=== PATIENT | male | born 2000 | race Caucasian/White ===

== ENCOUNTER 2022-05-06 04:36 | Emergency (ER) | payer OTHER, SELFPAY ==
--- NOTE | ~2022-05-06 | XR_ITS ---
EXAMINATION: XR chest 2V DATE: 05/06/2022 05:13 INDICATION: Cough. TECHNIQUE: Frontal and lateral views of the chest were obtained. COMPARISON: None. FINDINGS: The chest demonstrates clear lungs without pneumonia, pleural effusion, or pneumothorax. Th e heart size is normal. IMPRESSION: 1. No acute cardiopulmonary disease. Reviewed, dictated and finalized at location A. [employer]
[2022-05-06 04:40] VITALS: BP 129/74; PULSE 88; RESP 20; TEMP 37.1; O2SAT 95
[2022-05-06 04:45] VITALS: O2SAT 96
--- NOTE | 2022-05-06 05:01 | ED.URI ---
HPI - URI/Sore Throat General Chief Complaint: Upper Respiratory Infection Stated Complaint: SOB, cough Time Seen by Provider: 05/06/22 04:47 History of Present Illness HPI Narrative: This is a 22-year-old male who denies past medical history, presenting to the emergency department complaining of cough, myalgias, nausea and vomiting for the 2 days. He states the cough is productive of mucus, with intermittent specks of blood. He states his chest pain is sore, aggravated by prolonged coughing, alleviated with rest. He has no other complaints at this time Related Data Allergies Allergy/AdvReac Type Severity Reaction Status Date / Time aripiprazole Allergy Mild Anaphylactic Verified 05/06/22 04:46 Shock methylphenidate Allergy Anaphylaxis Verified 05/06/22 04:46 [From Concerta] CEPHALEXIN MONOHYDRATE Allergy Severe SOB, NECK Uncoded 05/06/22 04:46 WAS STIFF AND HE HAD TO BE INTUBATED Review of Systems Review of Systems: CONSTITUTIONAL: Fevers, chills denies or sweats. EYES: Denies visual changes, redness, or discharge. ENT: Rhinorrhea, congestion denies sore throat, or otalgia. CARDIOVASCULAR: Chest pain denies palpitations, or edema. RESPIRATORY: Cough denies dyspnea. GASTROINTESTINAL: Nausea and vomiting denies abdominal pain, or diarrhea. GENITOURINARY: Denies dysuria or hematuria. SKIN: Denies rash or itching. MUSCULOSKELETAL: Denies back pain, joint pain, or myalgia. NEUROLOGIC: Denies headache, numbness, dizziness, or weakness. PSYCHIATRIC: Denies anxiety or depression. [facility] Social History Social History (Updated 05/06/22 @ 05:03 by Fazal Barron MD) Smoking status: Never smoker Alcohol intake: never Substance use type: marijuana Exam Narrative: GENERAL: Well-developed, well-nourished, and in no acute distress. HEAD: Normocephalic, atraumatic. EYES: PERRLA and EOMI. ENT: Nares clear, no rhinorrhea or epistaxis. Mucous membranes moist. Oropharynx without tonsillar hypertrophy exudate or other lesions. NECK: Supple. No adenopathy or masses. No carotid bruits or JVD CHEST: Clear to auscultation. No respiratory distress. No wheezes rales or rhonchi HEART: Regular rate and rhythm. No murmur heard. Normal peripheral pulses. ABDOMEN: Soft, nontender, nondistended, normal active bowel sounds. EXTREMITIES: Normal range of motion. No edema. SKIN: Warm, dry, no rash. NEURO: No focal deficits. Alert and oriented x3. PSYCH: Normal mood and affect. Course Course Emergency Course: 05:50 -patient tested positive for influenza A. Chest x-ray on my review is not concerning for pneumothorax or focal consolidation. Discussed findings with the patient and recommendations for decongestants, Tylenol and NSAIDs for pain. Discussed return emergent precautions including signs/symptoms of respiratory distress. The patient voiced understanding and is comfortable with plan. All questions answered to his satisfaction. Vital Signs Vital signs: Vital Signs Temperature 98.7 F 05/06/22 04:40 Pulse Rate 88 05/06/22 04:40 Respiratory Rate 20 05/06/22 04:40 Blood Pressure 129/74 05/06/22 04:40 Pulse Oximetry 95 05/06/22 04:40 Oxygen Delivery Room Air 05/06/22 04:40 Temperature 98.7 F 05/06/22 04:40 Pulse Rate 88 05/06/22 04:40 Respiratory Rate 20 05/06/22 04:40 Blood Pressure 129/74 05/06/22 04:40 Pulse Oximetry 96 05/06/22 04:45 Oxygen Delivery Room Air 05/06/22 04:45 MDM - URI/Sore Throat MDM Narrative Medical decision making narrative: Plan: Imaging, swab for COVID and flu, reassess Differential Diagnosis Differential diagnosis: Likely influenza and other (Pneumonia, COVID, viral URI, other) Lab Data Labs: Lab Results 05/06/22 Range/Units 04:53 Influenza A (RT-PCR) Positive (Negative) Influenza B (RT-PCR) Negative (Negative) RSV (RT-PCR) Negative (Negative) SARS-CoV-2 RNA (RT-PCR) Negative Discharge
[2022-05-06 05:40] LABS: Influenza A QL RT-PCR Positive (Negative); Influenza B QL RT-PCR Negative (Negative); RSV RNA, RT-PCR Negative (Negative); SARS-CoV-2 RNA PCR Negative
[2022-05-06 05:50] VITALS: BP 140/84; PULSE 97; RESP 18; O2SAT 97
== END 2022-05-06 06:12 | disposition home or self-care (01) ==
PROVIDERS: Emergency Provider Preventive Medicine Aerospace Medicine
DX: J10.1 Influenza due to other identified influenza virus with other respiratory manifestations (principal); Z20.822 Contact with and (suspected) exposure to COVID-19
CPT/HCPCS: 71046; 87637; 99283

== ENCOUNTER 2022-05-06 18:50 | Emergency (ER) | payer OTHER, SELFPAY ==
[2022-05-06] VITALS (12 sets, daily range): BP systolic 126–153; BP diastolic 70–81; PULSE 86; RESP 18–20; TEMP 36.9; O2SAT 93–97
[2022-05-06] MEDS: KETOROLAC 30 MG/ML VIAL (*BKC) IV PUSH (20:49)
[2022-05-06] MEDS: ONDANSETRON INJ 4 MG/2 ML VIAL IV PUSH (20:49)
[2022-05-06] MEDS: SODIUM CHLORIDE 0.9% IV 1,000 ML 999 ML IV CONT (20:49)
[2022-05-06 21:14] LABS: Basophils Percent Auto 0.7 % (0.2-1.2); Hematocrit 45.3 % (42.0-52.0); Hemoglobin 15.5 g/dL (14.0-18.0); Immature Granulocyte Absolute 0.01 K/mm3 (0.00-0.031); Immature Granulocyte Percent A 0.2 % (0-0.5); Lymphocytes Absolute Auto 0.62 K/mm3 (0.9-3.2); Lymphocytes Percent Auto 11.4 % (18.3-44.2); Mean Corpuscular HGB Conc 34.2 g/dl (32-36); Mean Corpuscular Hemoglobin 28.3 pg (26-34); Mean Corpuscular Volume 82.7 fl (80-100); Mean Platelet Volume 10.7 fl (7.4-10.4); Monocytes Absolute Auto 0.8 K/mm3 (0.1-0.6); Monocytes Percent Auto 14.3 % (2.6-8.5); Neutrophils Percent Auto 73.4 % (45.5-73.1); Platelet Count Result 232 k/mm3 (150-375); Red Blood Count 5.48 M/mm3 (4.6-6.20); Red Cell Distribution Width 13.4 % (11.5-14.5); White Blood Count 5.5 K/mm3 (4.5-10.0)
[2022-05-06 21:22] LABS: Anion Gap 11 mmol/L (8-16); Blood Urea Nitrogen 10 mg/dL (9-20); Calcium 8.4 mg/dL (8.4-10.2); Carbon Dioxide 22 mmol/L (22-30); Chloride 104 mmol/L (98-107); Estimated CRCL calculation 168 ml/min; Estimated Glomerular Filt Rate > 60; Glucose 103 mg/dL (65-110); Potassium 3.7 mmol/L (3.4-5.0); Sodium 137 mmol/L (137-145)
--- NOTE | 2022-05-06 21:38 | ED.NAVMDI ---
HPI - Nausea/Vomiting/Diarrhea General Chief complaint: Nausea/Vomiting/Diarrhea Stated complaint: FLu +, Seen Last Night, Not Improving Time Seen by Provider: 05/06/22 20:37 History of Present Illness HPI Narrative: Patient is a 22-year-old male who presents ER with fatigue. Diagnosed with flu yesterday. He has had 5 episodes of diarrhea and 15 episodes of emesis today. No chest pain or chest pressure. No abdominal pain. He is not on Tamiflu. Symptoms ongoing for 3 days. Related Data Allergies Allergy/AdvReac Type Severity Reaction Status Date / Time aripiprazole Allergy Mild Anaphylactic Verified 05/06/22 04:46 Shock methylphenidate Allergy Anaphylaxis Verified 05/06/22 04:46 [From Concerta] CEPHALEXIN MONOHYDRATE Allergy Severe SOB, NECK Uncoded 05/06/22 04:46 WAS STIFF AND HE HAD TO BE INTUBATED Review of Systems Review of Systems: All systems reviewed & are unremarkable except as noted in HPI and below Constitutional: Constitutional: Reports chills and Reports fever(s) ENT: Denies nasal congestion and Denies sore throat Cardiovascular: Cardiovascular: Denies chest pain, Denies rapid heart rate and Denies radiating jaw, neck or arm pain Respiratory: Respiratory: Reports cough, Denies dyspnea and Denies wheezing Gastrointestinal: Gastrointestinal: Denies abdominal pain, Reports diarrhea, Reports nausea and Reports vomiting Musculoskeletal: Musculoskeletal: Reports myalgias, Denies arthralgias and Denies joint swelling PMFSH Past Medical History Medical History (Updated 05/06/22 @ 21:44 by Jasvir Veliz MD) Healthy adult male Surgical History Surgical History (Updated 05/06/22 @ 21:39 by Jasvir Veliz MD) No history of previous surgery Social History Social History (Updated 05/06/22 @ 05:03 by Fazal Barron MD) Smoking status: Never smoker Alcohol intake: never Substance use type: marijuana Exam Narrative: GENERAL: Well-appearing, well-nourished, and in no acute distress. HEAD: Normocephalic, atraumatic. ENT: Mucous membranes moist. CHEST: Clear to auscultation. No respiratory distress. HEART: Regular rate and rhythm. Normal peripheral pulses. ABDOMEN: Soft, nontender, nondistended. EXTREMITIES: Normal range of motion. No edema. SKIN: Warm, dry, no rash. NEURO: Alert and oriented x3. PSYCH: Normal mood and affect. Course Course Emergency Course: Patient resting comfortably. Hydrated. Labs unremarkable. Discharge home. Vital Signs Vital signs: Vital Signs Temperature 98.4 F 05/06/22 18:53 Pulse Rate 86 05/06/22 18:53 Respiratory Rate 20 05/06/22 18:53 Blood Pressure 138/76 05/06/22 18:53 Pulse Oximetry 97 05/06/22 18:53 Oxygen Delivery Room Air 05/06/22 18:53 Temperature 98.4 F 05/06/22 18:53 Pulse Rate 86 05/06/22 18:53 Respiratory Rate 20 05/06/22 18:53 Blood Pressure 138/76 05/06/22 18:53 Pulse Oximetry 97 05/06/22 18:53 Oxygen Delivery Room Air 05/06/22 18:53 MDM - Nausea/Vomiting/Diarrhea Lab Data 05/06/22 21:08 05/06/22 21:08 Labs: Lab Results 05/06/22 05/06/22 Range/Units 21:08 21:08 WBC 5.5 (4.5-10.0) K/mm3 RBC 5.48 (4.6-6.20) M/mm3 Hgb 15.5 (14.0-18.0) g/dL Hct 45.3 (42.0-52.0) % MCV 82.7 (80-100) fl MCH 28.3 (26-34) pg MCHC 34.2 (32-36) g/dl RDW 13.4 (11.5-14.5) % Plt Count 232 (150-375) k/mm3 MPV 10.7 H (7.4-10.4) fl Immature Gran % (Auto) 0.2 (0-0.5) % Neut % (Auto) 73.4 H (45.5-73.1) % Lymph % (Auto) 11.4 L (18.3-44.2) % [place] % (Auto) 14.3 H (2.6-8.5) % Eos % (Auto) 0.0 (0-4.4) % Baso % (Auto) 0.7 (0.2-1.2) % Lymph # (Auto) 0.62 L (0.9-3.2) K/mm3 Gooding # (Auto) 0.8 H (0.1-0.6) K/mm3 Eos # (Auto) 0.0 (0-0.3) K/mm3 Baso # (Auto) 0.0 (0.0-0.1) K/mm3 Abs Immat Gran (auto) 0.01 (0.00-0.031) K/mm3 Absolute Neuts (auto) 4.0 (1.3-6.7) K/mm
== END 2022-05-06 22:11 | disposition home or self-care (01) ==
PROVIDERS: Emergency Provider Emergency Medicine
DX: E86.0 Dehydration (principal)
CPT/HCPCS: 36415; 71046; 80048; 85025; 87637; 96361; 96374; 96375; 99284; J1885; J2405; J7030